=== PATIENT | male | born 1990 | race Caucasian/White ===

== ENCOUNTER 2020-05-11 13:24 | Emergency (ER) | payer MEDICARE, OTHER ==
[~2020-05-11] VITALS: Ht 172.7 cm; Wt 104.3 kg
--- OUTSIDE RECORDS SUMMARY | 2020-05-11 13:28 | XMS ---
PreManage Notification: RONN LYLES Security Melt Superintendant Events No recent Security Events currently on file CRITERIA MET - [facility] - Has Care Guidelines CARE PROVIDERS There are no care providers on record at this time. Guidelines Source: [facility] [place] Guidelines Date: 05/05/2020 Care Coordination: Member is currently engaged in [facility] services. If Mental Health services are needed, please contact: G[facility] [phone] [place]/ [place] [phone] [facility] Line [phone] E.D. VISIT COUNT (12 MO.) 1 [facility] TOTAL 1 NOTE: Visits indicate total known visits. ED/UCC VISIT TRACKING (12 MO.) 05/11/2020 13:25 [facility] [place] TYPE: Emergency COMPLAINT: - HEAD INJ/ LACERATION INPATIENT VISIT TRACKING (12 MO.) No inpatient visits to display in this time frame [email or web address]
[2020-05-11] MEDS ORDERED: FLUOXETINE HCL40 MG PO (13:45)
[2020-05-11] MEDS ORDERED: RISPERIDONE2 MG PO (13:45)
[2020-05-11] MEDS ORDERED: LEVOTHYROXINE100 MCG PO (13:45)
[2020-05-11] MEDS ORDERED: LITHIUM CARBON450 MG PO (13:45)
[2020-05-11] MEDS ORDERED: MINIPRESS2 MG PO (13:46)
[2020-05-11] MEDS ORDERED: ALLEGRA ALLERGY60 MG PO (13:46)
== END 2020-05-11 15:19 | disposition home or self-care (01) ==
LOC: ED 13:24
DX: S01.81XA Laceration without foreign body of other part of head, initial encounter (principal); I10 Essential (primary) hypertension; E11.9 Type 2 diabetes mellitus without complications; Z79.899 Other long term (current) drug therapy; X58.XXXA Exposure to other specified factors, initial encounter
CPT/HCPCS: 12013; 99282-25

== ENCOUNTER 2020-05-21 13:27 | Emergency (ER) | payer MEDICARE, OTHER ==
[~2020-05-21] VITALS: Ht 172.7 cm; Wt 104.3 kg
[~2020-05-21 13:27] MED LIST: ALLEGRA ALLERGY60 MG PO; FLUOXETINE HCL40 MG PO; LEVOTHYROXINE100 MCG PO; LITHIUM CARBON450 MG PO; MINIPRESS2 MG PO; RISPERIDONE2 MG PO
--- OUTSIDE RECORDS SUMMARY | 2020-05-21 13:32 | XMS ---
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 If Mental Health services are needed, please contact: Gifty [phone] Guillaume/ Hilario Rao [phone] Crisis Line [phone] Care History Medical/Surgical 05/12/2020 [facility] Patient has a scheduled appointment with Dr. Garcia on 05/20/2020. 05/12/2020 [facility] - Patient is currently established with [facility]. If patient is seen in the ED during business hours. Please contact [facility] at [facility]. Care Recommendation: If this patient has had 5 or more Emergency Department visits in the last 12 months.\T\nbsp; Patient will require education on the scope and purpose of the ED as an acute care provider not a Primary Care Provider and should not be utilized for chronic conditions.\T\nbsp; These are guidelines and the provider should exercise clinical judgment when providing care. E.D. VISIT COUNT (12 MO.) 2 [facility] TOTAL 2 NOTE: Visits indicate total known visits. ED/UCC VISIT TRACKING (12 MO.) 05/21/2020 13:29 [facility] [place] TYPE: Emergency COMPLAINT: - HEAD PAIN/INJ 05/11/2020 13:25 [facility] [place] TYPE: Emergency COMPLAINT: - HEAD INJ/ LACERATION DIAGNOSES: - Laceration without foreign body of other part of head, initia - Essential (primary) hypertension - Type 2 diabetes mellitus without complications - Laceration without foreign body of other part of head, initia - Other chcf (current) drug therapy - Exposure to other specified factors, initial encounter INPATIENT VISIT TRACKING (12 MO.) No inpatient visits to display in this time frame [id number]
== END 2020-05-21 16:19 | disposition home or self-care (01) ==
LOC: ED 13:27
DX: S01.80XD Unspecified open wound of other part of head, subsequent encounter (principal); I10 Essential (primary) hypertension; E11.9 Type 2 diabetes mellitus without complications; G47.30 Sleep apnea, unspecified; Z79.899 Other long term (current) drug therapy
CPT/HCPCS: 99283

== ENCOUNTER 2024-09-20 11:00 | Emergency (ER) | payer OTHER, MEDICARE ==
[~2024-09-20] VITALS: Ht 172.7 cm; Wt 104.1 kg
[2024-09-20] MEDS ORDERED: PRAZOSIN HCL5 MG PO (11:24)
[2024-09-20] MEDS ORDERED: PRAMIPEXOLE D0.25 MG PO (11:24)
[2024-09-20] MEDS ORDERED: HYDROCORTISO453.6 G2 TOP (11:24)
[2024-09-20] MEDS ORDERED: ARIPIPRAZOLE10 MG PO (11:24)
[2024-09-20] MEDS ORDERED: VITAMIN D21250 MCG PO (11:24)
[2024-09-20] MEDS ORDERED: TRAZODONE HCL100 MG PO (11:25)
[2024-09-20 12:03] VITALS: BP 120/85
== END 2024-09-20 12:03 | disposition home or self-care (01) ==
LOC: ED 11:00
DX: S81.012A Laceration without foreign body, left knee, initial encounter (principal); I10 Essential (primary) hypertension; E11.9 Type 2 diabetes mellitus without complications; Z79.890 Hormone replacement therapy; Z79.899 Other long term (current) drug therapy; W01.0XXA Fall on same level from slipping, tripping and stumbling without subsequent striking against object, initial encounter
CPT/HCPCS: 12001; 99282